=== PATIENT | male | born 1995 | race Caucasian/White ===

== ENCOUNTER 2019-02-01 11:40 | Emergency (ER) | payer BC ==
[2019-02-01 12:33] VITALS: BP 134/83
--- NOTE | 2019-02-01 12:59 | ED ---
Influenza-Like Illness - HPI Summary HPI Summary: 23 year old male presents with cough for the past 2 days. He admits to sore throat and sinus congestion. He has not tried anything for his symptoms. admits to occasional headache. no ear pain or abdominal pain, n/v. he has a history of asthma but has not had an issues with such. no one else is sick. - History of Current Complaint Chief Complaint: UCGeneralIllness Time Seen by Provider: 02/01/19 12:25 - Allergy/Home Medications Allergies/Adverse Reactions: Allergies Allergy/AdvReac Type Severity Reaction Status Date / Time No Known Allergies Allergy Verified 09/24/15 16:08 PMH/Surg Hx/FS Hx/Imm Hx Endocrine/Hematology History: Denies: Hx Anticoagulant Therapy Respiratory History: Reports: Hx Asthma - ALLERGY-INDUCED Infectious Disease History: No Infectious Disease History: Denies: Traveled Outside the [place] in Last 30 Days - Family History Known Family History: Positive: Other - rheumatoid arthritis Negative: Cardiac Disease, Hypertension, Diabetes, Blood Disorder - Social History Alcohol Use: Occasionally Hx Substance Use: No Substance Use Type: Reports: None Hx Tobacco Use: No Smoking Status (MU): Never Smoked Tobacco Have You Smoked in the Last Year: No Review of Systems Negative: Fever Positive: Sore Throat, Nasal Discharge Positive: Cough Positive: Myalgia Negative: Headache All Other Systems Reviewed And Are Negative: Yes Physical Exam Triage Information Reviewed: Yes Vital Signs On Initial Exam: Initial Vitals Temp Pulse Resp BP Pulse Ox 99.8 F 92 18 134/83 98 02/01/19 12:27 02/01/19 12:27 02/01/19 12:27 02/01/19 12:27 02/01/19 12:27 Vital Signs Reviewed: Yes Appearance: Positive: Well-Appearing Skin: Positive: Warm, Dry Head/Face: Positive: Normal Head/Face Inspection Eyes: Positive: Normal, EOMI, AVE, Conjunctiva Clear ENT: Positive: Normal ENT inspection, Pharynx normal, TMs normal Respiratory/Lung Sounds: Positive: Clear to Auscultation, Breath Sounds Present Cardiovascular: Positive: Normal, RRR Abdomen Description: Positive: Nontender, Soft Bowel Sounds: Positive: Present Musculoskeletal: Positive: Normal Neurological: Positive: Normal Psychiatric: Positive: Normal Diagnostics - Vital Signs Vital Signs Temp Pulse Resp BP Pulse Ox 12/06/19 12:27 99.8 F 92 18 134/83 98 - Laboratory Lab Statement: Any lab studies that have been ordered have been reviewed, and results considered in the medical decision making process. Flu Symptom Course/Dx - Course Course Of Treatment: 23 year old male presents with cough for the past 2 days. He admits to sore throat and sinus congestion. He has not tried anything for his symptoms. admits to occasional headache. no ear pain or abdominal pain, n/ v. he has a history of asthma but has not had an issues with such. no one else is sick. On exam lungs clear to auscultation. Pharynx normal. flu is positive. will treat with tamiflu. told est care with primary and follow up about blood pressure as in pre-htn range. patient understand and agrees with plan. - Diagnoses Differential Diagnosis/HQI/PQRI: Positive: Influenza, Pneumonia, Upper Respiratory Infection Provider Diagnoses: Influenza Discharge ED - Sign-Out/Discharge Documenting (check all that apply): Patient Departure All imaging exams completed and their final reports reviewed: No Studies - Discharge Plan Condition: Good Disposition: HOME Prescriptions: Oseltamivir CAP* [Tamiflu CAP*] 75 mg PO BID #10 cap Patient Education Materials: Influenza (ED) Referrals: [facility] [place] [facility] [Outside] Additional Instructions: Take Tamiflu twice for 5 days first dose given in ED Take Tylenol and ibuprofen for muscle aches and fever every 6 hours Saline rinse can be used multiple times a day for nasal congestion Drink plenty of fluids establish care with primary Return to ED if develop any new or worsening symptoms - Billing Disposition and Condition Condition: GOOD Disposition: Home
[2019-02-01 13:22] LABS: Influenza B Molecular POSITIVE (Negative)
== END 2019-02-01 14:00 | disposition home or self-care (01) ==
LOC: UCEAST 11:40
DX: J11.1 Influenza due to unidentified influenza virus with other respiratory manifestations (principal); J45.909 Unspecified asthma, uncomplicated
CPT/HCPCS: 99212; G0463